=== PATIENT | female | born 1995 ===

== ENCOUNTER 2022-01-13 15:15 | Emergency (ER) | payer SELFPAY ==
[~2022-01-13] VITALS: Ht 160 cm; Wt 72.7 kg
[2022-01-13 15:45] VITALS: BP 130/80
[2022-01-13] MEDS ORDERED: ketorolac trometh. 30mg/ml inj. IM ONE (15:50)
[2022-01-13] MEDS ORDERED: cyclobenzaprine 10mg tablet PO ONE (15:50)
[2022-01-13] MEDS ORDERED: CYCL-1 PO (15:52)
== END 2022-01-13 16:53 | disposition home or self-care (01) ==
LOC: ER 15:16
DX: M54.2 Cervicalgia (principal)
CPT/HCPCS: 73110; 96372; 99283; J1885